=== PATIENT | female | born 1985 | race African-American/Black ===

== ENCOUNTER 2016-09-20 22:38 | Emergency (ER) | payer MEDICAID ==
[2016-09-20 22:52] VITALS: BP 119/76; PULSE 76; RESP 16; TEMP 99; O2SAT 96
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
[2016-09-20] MEDS ORDERED: HYDROCOD/APAP 5/325 PREPACK#6 BTL TAKEHOME ONE (23:06)
[2016-09-20] MEDS ORDERED: HYDROCODONE/APAP 5/325 TAB PO ONE (23:06)
== END 2016-09-20 23:24 | disposition home or self-care (01) ==
LOC: CED 22:38
DX: S00.33XA Contusion of nose, initial encounter (principal); W50.0XXA Accidental hit or strike by another person, initial encounter

== ENCOUNTER 2016-09-24 15:16 | Emergency (ER) | payer MEDICAID ==
[2016-09-24 15:29] VITALS: BP 114/67; PULSE 75; RESP 16; TEMP 97.7; O2SAT 98
--- NOTE | 2016-09-24 15:39 | EDPHY ---
H & P Time Seen by Provider: 09/24/16 15:30 HPI/ROS: HPI Recheck of nose injury. 31-year-old female by private vehicle with her friend. This patient reports that she was seen in our emergency department here at the [facility] on Thursday night. She had been need in the nose prior to coming in at that time. She was sent home without imaging. She returns to the emergency department today wanting a recheck of her nose. She reports that she still has some discomfort to her nose and a feeling of stuffiness in her nose. She has not had any bleeding. No other complaints. She denies headache. No changes in vision. ROS: Constitutional: No fever, no chills. No weakness. Eyes: No discharge. No changes in vision. ENT: No sore throat. No nasal congestion or rhinorrhea. As above. Respiratory: No cough. No shortness of breath. Musculoskeletal: No back pain. No neck pain. No extremity pain. Skin: No lacerations or abrasions. Neurological: No headache. No focal weakness or altered sensation. Past medical history: Knee surgery. Otherwise denies. Social history: Denies tobacco products. Social alcohol. Physical Exam: General Appearance: Alert, no distress. This patient is responding to questions appropriately and in full sentences. This patient appears well- hydrated and well-nourished. Eyes: Pupils equal and round no pallor or injection. No lid edema, erythema or injection. ENT, Mouth: Mucous membranes are moist. The pharyngeal tissues are unremarkable. No edema or swelling. No asymmetry suggestive of abscess. No erythema or exudates. The nasal bridge is stable on palpation. No deformity or ecchymosis. No crepitus on manipulation. Her nasal bridge and nasal tissues appear symmetric and without significant swelling. On speculum exam the bilateral nasal canals they are clear. There is no evidence of septal hematoma. No bleeding. Neurological: Motor sensory function is grossly intact. Cranial nerves are normal. Gait is normal. Skin: Warm and dry, no rashes. Musculoskeletal: Neck is supple and nontender. No pain on flexion of the neck. Extremities are symmetrical. All joints range without pain or impingement. Psychiatric: No agitation. No depression. Database: EKG: Imaging: Procedures: Emergency department course: After my exam, I explained that I did not think she had a nasal fracture. I discussed follow-up with ENT for a 2nd opinion. I explained however that I did not think this was absolutely necessary. She feels comfortable going home with her friend. Return to emergency department precautions were discussed. All of her questions were answered. She was discharged in good condition. Differential Diagnosis: The differential diagnosis on this patient includes but is not limited to nasal contusion. Nasal fracture, septal hematoma unlikely. This represents a partial list of diagnoses considered. These considerations are based on history , physical exam, past history, reassessment and diagnostic testing. Smoking Status: Current some day smoker Constitutional: Initial Vital Signs Temperature (C) 36.5 C 09/24/16 15:20 Heart Rate 75 09/24/16 15:20 Respiratory Rate 16 09/24/16 15:20 Blood Pressure 114/67 09/24/16 15:20 O2 Sat (%) 98 09/24/16 15:20 O2 Delivery Mode Room Air Allergies/Adverse Reactions: No Known Allergies Allergy (Verified 09/24/16 15:29) Home Medications: Medication Instructions Recorded NK [No Known Home Meds] 09/20/16 Departure - Departure Disposition: Home, Routine, Self-Care Clinical Impression: Nasal contusion Condition: Good Instructions: Nasal Contusion (ED) Additional Instructions: Read and follow provided instructions. Follow-up with Dr. Duff with the ENT service or 1 of his partners at [facility] for a 2nd opinion as discussed. Call their office this afternoon or tomorrow morning for appointment time. Ibuprofen dosin mg every 6 hours with meals for the next 3 days only. Take only as needed for pain. Return to the emergency department for worsening pain, swelling, bleeding or other serious concerns. Referrals: Zohreh Duff MD [Medical Doctor] - As per Instructions
== END 2016-09-24 15:50 | disposition home or self-care (01) ==
LOC: CED 15:16
DX: S00.33XD Contusion of nose, subsequent encounter (principal); F17.200 Nicotine dependence, unspecified, uncomplicated; W51.XXXD Accidental striking against or bumped into by another person, subsequent encounter

== ENCOUNTER 2016-10-21 08:54 | Emergency (ER) | payer MEDICAID ==
[2016-10-21 09:06] VITALS: O2SAT 98
--- NOTE | 2016-10-21 09:22 | EDPHY ---
H & P Stated Complaint: R FLANK PAIN STARTED 9 DAYS AGO, RADIATES TO RLQ, DYSURIA Time Seen by Provider: 10/21/16 09:00 HPI/ROS: Chief Complaint: Back pain HPI: 31-year-old woman presenting with right flank and back pain. She 1st had some discomfort a week or 2 ago was been significantly worse for the last 2 days. She does start her menstrual cycle 2 days ago as well. It is normal for her. She is status post elective termination in the past. No vaginal discharge. No urinary urgency or frequency. No fevers or chills. No numbness or weakness. Patient states that she just cannot find a position of comfort. Did take some ibuprofen yesterday with minimal relief. Is not have a history of any IV drug use, falls or other injuries. She does have a history of ovarian cyst in the past and states that this is similar. ROS: 10 point Review of Systems is negative except as noted in the HPI. PMH: Ovarian cyst, pilonidal cyst Social History: No smoking, no alcohol, no recreational drug use Family History: non-contributory Physical Exam: Gen: Awake, Alert, No Distress HEENT: Nose: no rhinorrhea Eyes: PERRLA, EOMI Mouth: Moist mucosa Neck: Supple, no JVD Chest: nontender, lungs clear to auscultation Heart: S1, S2 normal, no murmur Abd: Soft, she has some mild tenderness in the right adnexa reproducing her presenting complaint, no tenderness at McBurney's point, no guarding Back: no CVA tenderness, no midline tenderness, right paraspinal soft tissue tenderness reproducing presenting complaint. Ext: no edema, non-tender Skin: no rash Neuro: CN II-XII intact, Sensation grossly intact, Strength 5/5 in bilateral upper and lower extremities - Personal History LMP (Females 10-55): Now - Medical/Surgical History Hx Asthma: No Hx Chronic Respiratory Disease: No Hx Diabetes: No Hx Cardiac Disease: No Hx Renal Disease: No Hx Cirrhosis: No Hx Alcoholism: No Hx HIV/AIDS: No Hx Splenectomy or Spleen Trauma: No Other PMH: KNEE SURG - Social History Smoking Status: Current some day smoker Constitutional: Initial Vital Signs Temperature (C) 36.8 C 10/21/16 09:04 Heart Rate 75 10/21/16 09:04 Respiratory Rate 18 10/21/16 09:04 Blood Pressure 100/71 10/21/16 09:04 O2 Sat (%) 98 10/21/16 09:04 O2 Delivery Mode Room Air Allergies/Adverse Reactions: No Known Allergies Allergy (Verified 10/21/16 09:04) Home Medications: Medication Instructions Recorded NK [No Known Home Meds] 09/20/16 Medical Decision Making - Diagnostics Imaging Results: Imaging Impressions Pelvic/Renal Ultrasound 10/21/16 09:24 Impression: 1. There is a normal appearance of the ovaries, containing tiny follicles, with no dominant adnexal mass or torsion. 2. Small amount of free fluid in the cul-de-sac, which is a nonspecific finding , but could represent rupture of an ovarian follicle or cyst. Findings were discussed with Chang Flores MD at 10:25 AM, on 10/21/2016. . Imaging: Discussed imaging studies w/ order desk caller Radiologist ED Course/Re-evaluation: Patient's pain is gone after IV Toradol and fentanyl. Urinalysis shows trace amount of blood but this is likely secondary to menses. She does have a trace amount of free fluid in the pelvis which could represent a ruptured cyst. She is certainly not have an acute abdomen. She does have some reproducible back pain at think it is likely the primary cause as musculoskeletal. She has not have any red flags for cauda equina or acute neurologic process. Will send her home with recommendations for ibuprofen, back exercises, follow up with her doctor in about a week for recheck of her urine to see if she has continued to have any blood in her urine. I do not think a CT scan of the abdomen pelvis is indicated at this time but she might require 1 if her symptoms persist. - Data Points Laboratory Results: 10/21/16 10/21/16 09:00 09:00 Urine Color YELLOW Urine Appearance CLEAR Urine pH 5.5 (5.0-7.5) Ur Specific [place] 1.010 (1.002-1.030) Urine Protein NEGATIVE (NEGATIVE) Urine Ketones NEGATIVE (NEGATIVE) Urine Blood TRACE H (NEGATIVE) Urine Nitrate POSITIVE H (NEGATIVE) Urine Bilirubin NEGATIVE (NEGATIVE) Urine Urobilinogen 0.2 EU EU (0.2-1.0) Ur Leukocyte Esterase NEGATIVE (NEGATIVE) Urine RBC 3-5 /hpf H /hpf (0-3) Urine WBC 0-1 /hpf /hpf (0-3) Ur Epithelial Cells TRACE /lpf /lpf (NONE-1+) Urine Bacteria TRACE /hpf H /hpf (NONE SEEN) Urine Mucus TRACE /lpf /lpf (NONE-1+) Urine Glucose NEGATIVE (NEGATIVE) Urine Test NEGATIVE Medications Given: Discontinued Medications Fentanyl (Sublimaze) 50 mcg IVP EDNOW ONE Stop: 10/21/16 09:35 Last Admin: 10/21/16 09:38 Dose: 50 mcg Ketorolac Tromethamine (Toradol) 15 mg IVP EDNOW ONE Stop: 10/21/16 09:24 Last Admin: 10/21/16 09:35 Dose: 15 mg Departure - Departure Disposition: Home, Routine, Self-Care Clinical Impression: Back pain Condition: Good Instructions: Lower Back Exercises (ED), Back Pain (ED) Additional Instructions: Take 600 mg 3 times a day for the next 3 days. Do not rest in bed, it is important to stay mobile and active. You may apply ice for 15 minutes 3 to 4 times a day. Follow up with doctor in about a week if symptoms are not improving. Return to the emergency department for increasing pain, numbness, weakness, fevers, chills, or any other concerns. Stand Alone Forms: Work Excuse
[2016-10-21] MEDS ORDERED: KETOROLAC 15 MG/1 ML SDV IVP ONE (09:23)
[2016-10-21 09:32] LABS: COLOR YELLOW; LEUKOCYTE ESTERASE,URINE NEGATIVE (NEGATIVE); NITRITE,URINE POSITIVE (NEGATIVE); PH,URINE 5.5 (5.0-7.5)
[2016-10-21] MEDS ORDERED: fentaNYL 100 MCG/2 ML INJ IVP ONE (09:34)
[2016-10-21 09:49] LABS: BACTERIA TRACE /hpf (NONE SEEN); MUCUS TRACE /lpf (NONE-1+); WBC,URINE 0-1 /hpf (0-3)
[2016-10-21] MEDS ORDERED: fentaNYL 100 MCG/2 ML INJ ONE (09:59)
[2016-10-21 11:02] VITALS: BP 115/76; PULSE 64; RESP 14; TEMP 98.1
== END 2016-10-21 11:06 | disposition home or self-care (01) ==
LOC: CED 08:54
DX: M54.9 Dorsalgia, unspecified (principal); F17.200 Nicotine dependence, unspecified, uncomplicated
CPT/HCPCS: 76856-PO; 81003-PO; 81015-PO; 81025-PO; 96374; J1885; J3010

== ENCOUNTER 2017-08-20 22:55 | Emergency (ER) | payer MEDICAID ==
[2017-08-20 23:15] VITALS: BP 110/80
[2017-08-20] MEDS ORDERED: IBUPROFEN 600 MG TAB PO ONE (23:15)
[2017-08-20] MEDS ORDERED: ACETAMINOPHEN 500 MG TAB PO ONE (23:15)
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
[2017-08-20] MEDS ORDERED: traMADol 50 MG TAB PO ONE (23:55)
[2017-08-21] MEDS: traMADol 50 MG TAB PO ONE ×2 (00:07→00:08)
== END 2017-08-21 00:10 | disposition home or self-care (01) ==
LOC: CED 22:55
DX: S93.491A Sprain of other ligament of right ankle, initial encounter (principal); F17.200 Nicotine dependence, unspecified, uncomplicated; X50.9XXA Other and unspecified overexertion or strenuous movements or postures, initial encounter; Y99.8 Other external cause status; Y93.02 Activity, running
CPT/HCPCS: 73610-PO; 73620-PO; L4350

== ENCOUNTER 2017-08-28 10:29 | Emergency (ER) | payer MEDICAID ==
[2017-08-28 10:45] VITALS: BP 114/67
--- NOTE | 2017-08-28 11:33 | EDPHY ---
H & P Time Seen by Provider: 08/28/17 10:39 HPI/ROS: CHIEF COMPLAINT: Right ankle pain HISTORY OF PRESENT ILLNESS: Patient was seen on 08/20 for ankle injury and was diagnosed with sprained ankle. She was given Bin wrap, splint told use crutches as needed. She states that yesterday evening she took her dog out for a walk and stepped in a hole. [place] a pop and states that the ankle is hurting more. No other significant new injuries. No loss of consciousness or neck pain. REVIEW OF SYSTEMS: Negative except per HPI. General Appearance: Alert, no distress. Eyes: Pupils equal and round no icterus Respiratory: No respiratory distress Neurological: Awake, alert, no focal deficits. Skin: Warm and dry, no rashes. Musculoskeletal: Neck is supple nontender. Right ankle with ecchymosis diffuse tenderness to palpation minimal swelling. Distal intact. Extremities are symmetrical, full range of motion, no edema. Psychiatric: Patient is oriented X 3, there is no agitation. Medical/surgical history: History of depression, knee surgeries. Social history: Unknown smoking status Smoking Status: Current some day smoker Constitutional: Initial Vital Signs Temperature (C) 37 C 08/28/17 10:37 Heart Rate 78 08/28/17 10:37 Respiratory Rate 16 08/28/17 10:37 Blood Pressure 114/67 08/28/17 10:37 O2 Sat (%) 96 08/28/17 10:37 O2 Delivery Mode Room Air Allergies/Adverse Reactions: No Known Allergies Allergy (Verified 08/28/17 10:39) Home Medications: Medication Instructions Recorded Prozac 20 MG (*) 08/20/17 traMADol [Ultram 50 mg (*)] 50 - 100 mg PO Q4 PRN #15 tab 08/20/17 Medical Decision Making ED Course/Re-evaluation: Patient was seen and evaluated, I ordered x-ray and when facilities maintenance technician went to perform x-ray patient refused x-ray and left the emergency department prior to completion of visit. Differential Diagnosis: Differential diagnosis includes ankle fracture, ankle strain, sprain. Drug- seeking behavior. After evaluation unlikely new ankle fracture although patient did not stay for x-ray. Could not clear on ankle rules. Question drug- seeking behavior. Left prior to completion of visit. Departure - Departure Disposition: Home, Routine, Self-Care Condition: Good Referrals: NONE *PRIMARY CARE P,. [Primary Care Provider] - As per Instructions
== END 2017-08-28 11:21 | disposition home or self-care (01) ==
LOC: CED 10:29
DX: M25.571 Pain in right ankle and joints of right foot (principal); F17.200 Nicotine dependence, unspecified, uncomplicated